=== PATIENT | male | born 1985 ===

== ENCOUNTER 2017-08-04 17:23 | Emergency (ER) | payer SELFPAY ==
[2017-08-04 18:13] VITALS: BP 100/66; PULSE 98; RESP 18; TEMP 98.6; O2SAT 99
[2017-08-04] MEDS ORDERED: Albuterol 0.083% Inhal Sol (2.5 mg/3 mL) UD IH STA (18:41)
[2017-08-04] MEDS ORDERED: Albuterol 0.083% Inhal Sol (2.5 mg/3 mL) UD ONE (18:46)
--- NOTE | 2017-08-04 19:09 | C.PDOC ---
History Of Present Illness 32 yr old male with PMHx of cerebral palsy, MR present to ED accompanied by mother for evaluation of cold sx fora pst 4-5 days associated with body aches, low grade fever, nasal congestion, dry cough . Mom states she has tried OTC medicine with no improvement. Otherwise, mom denies high fever, lethargy or any new changes from baseline mental status, headache, drooling, chest pain, SOB, wheezing, change in appetite, vomiting, diarrhea. Dad has similar symptoms and is a patient in the ER. At present time, pt is awake, comfortable, not in any apparent distress, occasional dry cough noted. Time Seen by Provider: 08/04/17 18:16 Chief Complaint (Nursing): Cough, Cold, Congestion History Per: Family (Mom) History/Exam Limitations: clinical condition Onset/Duration Of Symptoms: Days (5) Current Symptoms Are (Timing): Still Present Sick Contacts (Context): Family Member(s) (Dad) Past Medical History Reviewed: Historical Data, Nursing Documentation, Vital Signs Vital Signs: Last Vital Signs Temp 98.6 F 08/04/17 18:09 Pulse 98 H 08/04/17 18:09 Resp 18 08/04/17 18:09 BP 100/66 08/04/17 18:09 Pulse Ox 99 08/04/17 19:14 Family History: States: No Known Family Hx - Social History Hx Alcohol Use: No Hx Substance Use: No Review Of Systems Except As Marked, All Systems Reviewed And Found Negative. Constitutional: Positive for: Fever (low grade), Other ((+) body aches) ENT: Positive for: Nose Congestion Respiratory: Positive for: Cough (dry). Negative for: Shortness of Breath Gastrointestinal: Negative for: Vomiting Neurological: Negative for: Headache Physical Exam - Physical Exam Appears: Non-toxic, No Acute Distress, Other (wheelchair) Skin: Warm, Dry Head: Normacephalic Eye(s): bilateral: PERRL Ear(s): Bilateral: Normal Nose: Discharge (clear rhinorrhea) Oral Mucosa: Moist, No Drooling Tongue: Normal Appearing Lips: Normal Appearing Throat: Erythema (mild), No Drooling Neck: Trachea Midline, Supple Cardiovascular: Rhythm Regular Respiratory: No Decreased Breath Sounds, No Accessory Muscle Use, No Rales, No Rhonchi, No Stridor, No Wheezing Gastrointestinal/Abdominal: Soft, No Tenderness Extremity: No Pedal Edema ED Course And Treatment O2 Sat by Pulse Oximetry: 99 (RA) Pulse Ox Interpretation: Normal - Radiology CXR: Interpreted by Me, Viewed By Me CXR Interpretation: Yes: No Acute Disease Progress Note: On re-eval, pt is awake, alert, not in any apparent distress. Afebrile, hemodynamicaly stable. non-toxic. Tolerate PO well in ED. PulseOx 98 % RA. Neck: SUpple, (-) JVD, (-) meningeal sign. ENT: No acute findings. uvula midline, no edema. Lungs: CTA B/L, BS equal B/L. ABd: benign. Influenza A. CXR- appears normal. Pt has clinical findings c/w influenza-like sx. Parent advised and ref. to F/U with PMD in 1-2 days for re-eavl. return to ED at any time if any worsening or new changes. Medical Decision Making Medical Decision Making: PLAN: * CXR * Influenza * Albuterol IH Disposition Counseled Patient/Family Regarding: Studies Performed, Diagnosis, Need For Followup, Rx Given - Disposition Referrals: [facility] [Outside] Disposition: HOME/ ROUTINE Disposition Time: 19:05 Condition: STABLE Additional Instructions: ENCOURAGE FLUIDS GIVE MEDICATION PRESCRIBED FOLLOW UP WITH PMD IN 1-2 DAYS FOR RE-EVALUATION. RETURN TO ED IF ANY WORSENING OR NEW CHANGES. Prescriptions: Albuterol HFA [Ventolin HFA 90 mcg/actuation (8 g)] 1 puff IH Q6 #1 inhaler Benzonatate [Tessalon Perle] 100 mg PO TID #14 capsule Prednisone [Deltasone] 20 mg PO DAILY #3 tablet Instructions: Upper Respiratory Infection (ED) Forms: [employer] (Bangladeshi) Print Language: LITHUANIAN - Clinical Impression Clinical Impression: Viral disease - PA / EDUCATION FINANCE PROCESSOR / Resident Statement MD/DO has reviewed & agrees with the documentation as recorded. - Scribe Statement The provider has reviewed the documentation as recorded by the Scribe Brenna Valdez All medical record entries made by the Scribe were at my direction and personally dictated by me. I have reviewed the chart and agree that the record accurately reflects my personal performance of the history, physical exam, medical decision making, and the department course for this patient. I have also personally directed, reviewed, and agree with the discharge instructions and disposition.
--- NOTE | 2017-08-05 08:49 | RAD ---
HISTORY: Cough COMPARISON: No prior. TECHNIQUE: Chest PA and lateral FINDINGS: LUNGS: No active pulmonary disease. PLEURA: No significant pleural effusion identified. No pneumothorax apparent. CARDIOVASCULAR: Normal. OSSEOUS STRUCTURES: Rightward thoracic convexity Low lung volumes -downward coursing bilateral ribs -thoracic mentally anomaly inferred VISUALIZED UPPER ABDOMEN: Normal. OTHER FINDINGS: None. IMPRESSION: No acute pulmonary pathology. 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
== END 2017-08-04 20:06 | disposition home or self-care (01) ==
LOC: C.ER 17:23
DX: B34.9 Viral infection, unspecified (principal)